=== PATIENT | female | born 1940 | race Caucasian/White ===

== ENCOUNTER → 2016-07-19 | Outpatient (CLI) | payer OTHER, MEDICARE ==
--- NOTE | 2016-07-19 18:04 | DX ---
PA and Lateral Chest History: Cough x1 month in a 76-year-old female; comparison prior study February 01, 2016. Findings: The heart and mediastinum are normal. Pulmonary vascularity is normal. No focal pulmonary c onsolidation is seen. Minimal basilar atelectasis is noted. There is been no significant change from the prior study.. There is no pleural fluid. A pneumothorax is not identified. Impression: Chest negative for acute abnormality.
== END ==
LOC: CIMAGING 14:33
PROVIDERS: ATTEND Nurse Practitioner
DX: R05 Cough (principal)
CPT/HCPCS: 71020-PO; G0463-PO

== ENCOUNTER 2016-07-22 20:20 | Emergency (ER) | payer OTHER, MEDICARE ==
[2016-07-22 20:33] VITALS: BP 176/76; PULSE 94; RESP 18; TEMP 99.5; O2SAT 92
[2016-07-22] MEDS ORDERED: IPRATROPIUM/ALBUTEROL 3 ML DEYVIAL ONE (22:58)
[2016-07-22] MEDS ORDERED: NS 500 ML IV ONE (22:59)
[2016-07-22] MEDS ORDERED: IPRATROPIUM/ALBUTEROL 3 ML DEYVIAL IH ONE (23:12)
--- NOTE | 2016-07-22 23:18 | EDPHY ---
H & P Stated Complaint: cough worsening over 5 days HPI/ROS: CHIEF COMPLAINT: Flu-like symptoms HISTORY OF PRESENT ILLNESS: patient reports cough, congestion, headache, runny nose, body aches, fever and chills. This started on . Mild-to- moderate symptoms that have continued to worsen. No chest pain of any kind during this. She does have occasional shortness of breath with this and worsening of her baseline wheezing. She has no abdominal pain. Some nausea but no vomiting. No urinary complaints. She does have body aches with this. She was seen by primary care physician on Friday with a chest x-ray that was reportedly normal. Discharged home with continuing symptomatic medications. She also has a recent nasal wash out and polypectomy by her ear nose and throat physician several weeks ago. Because of this, her Ear Nose and Throat physician called in a prescription for doxycycline for her to start today. She says that given her medical history, she tends to get viral infections and causing sinusitis thus the doxycycline from her physician. She has no other associated complaints or modifying factors. REVIEW OF SYSTEMS: Ten systems reviewed and are negative unless otherwise noted in the HPI EXAMINATION General Appearance: Alert, no distress Head: normocephalic, atraumatic Eyes: Pupils equal and round, no conjunctival pallor or injection ENT, Mouth: Mucous membranes moist . Uvula midline. No posterior erythema or edema. Neck: Normal inspection, supple, non-tender . Painless range of motion in all planes. no meningismus. Respiratory: Scattered rhonchi, right greater than left. Scattered wheezing , right greater than left. No consolidation or diminishment. No respiratory distress or retractions. Cardiovascular: Regular rate and rhythm . No murmur. Pulses intact distally. Gastrointestinal: Abdomen is soft and nontender The. No flank pain. No suprapubic pain. Neurological: A&O, nonfocal, Strength is symmetric in all limbs. Skin: Warm and dry, no rash Extremities: Nontender, no pedal edema Psychiatric: Mood and affect normal DIFFERENTIAL DIAGNOSES: Including but not limited to Influenza, viral illness, pneumonia, bronchitis, sinusitis MDM: 11:00 p.m. multiple symptoms consistent with the influenza versus viral illness. Vital signs are within normal limits and she does not meet criteria for SIRS. Her auscultation is concerning for possible pneumonia thus I did repeat the chest x- ray she had done on Friday. Laboratory studies are pending at this time including influenza study. She is in no acute distress and comfortable with this plan. 11:20 p.m. chest x-ray as read by me shows right perihilar thickening without any evidence of pneumonia or pneumothorax. 11:45 p.m. patient is positive for influenza B. I re-evaluated the patient. Her lung sounds have improved on the right side after her DuoNeb treatment. Her vital signs are acceptable given her influenza. She is mildly tachycardic at 100 to 105 beats per minute. Her blood pressure is normal. Her oxygenation is 95-100% on room air while wearing a paper mask. She is in no acute distress. The laboratory studies are pending at this time. She does complain of headache and body aches and is requesting pain medication will give her a p.o. dose of Percocet. 12:30 a.m. I have re-evaluated the patient. Her vital signs remained stable. Heart rate is in the 70s. Blood pressure is normotensive. Afebrile and oxygen is 98% on room air. She is feeling better with pain medication. She is comfortable with discharge home and I feel she is stable for doing so. We did start Tamiflu in case it may help her. We discussed the nature of the medication that may not help but will prescribe this for her. She is to contact her Ear Nose and Throat physician and her primary care physician in the morning for follow-up and re-evaluation. She is return to ER for any chest pain, any shortness of breath, any dizziness, or any lightheaded sensation. The patient and the spouse are comfortable this plan and they would like to be discharged home. SUPERVISION:This patient was independently evaluated without the aide of supervising physician. Source: Patient Exam Limitations: No limitations - Personal History Current Tetanus/Diphtheria Vaccine: Yes Current Tetanus Diphtheria and Acellular Pertussis (TDAP): Yes - Medical/Surgical History Hx Asthma: Yes Hx Chronic Respiratory Disease: No Hx Diabetes: No Hx Cardiac Disease: No Hx Renal Disease: No Hx Cirrhosis: No Hx Alcoholism: No Hx HIV/AIDS: No Hx Splenectomy or Spleen Trauma: No Other PMH: sinus surgery. femur fx repair - Social History Smoking Status: Never smoked Constitutional: Initial Vital Signs Temperature (C) 99.5 F 07/22/16 20:28 Heart Rate 94 07/22/16 20:28 Respiratory Rate 18 07/22/16 20:28 Blood Pressure 176/76 H 07/22/16 20:28 O2 Sat (%) 92 07/22/16 20:28 O2 Delivery Mode Room Air Allergies/Adverse Reactions: Penicillins Allergy (Verified 12/31/11 15:22) Home Medications: Medication Instructions Recorded Fluticasone/Salmeterol [Advair 1 each IH BID 12/31/11 250-50 Diskus] Montelukast Sodium [Singulair] 10 mg PO HS 12/31/11 Omeprazole [Prilosec 20 mg] 20 mg PO DAILY 12/31/11 Sertraline HCl 100 mg PO DAILY 12/31/11 Simvastatin [Zocor 40 mg] 40 mg PO EVERY OTHER DAY 12/31/11 Trazodone HCl 100 mg PO HS 12/31/11 celeCOXIB [Celebrex] 200 mg PO DAILY 12/31/11 Cetirizine [ZyrTEC 10 mg (*)] 10 mg PO DAILY 02/01/16 Furosemide [Lasix 20 MG (*)] 20 mg PO DAILY 02/01/16 Simvastatin [Zocor] 20 mg PO EVERY OTHER DAY 02/01/16 Acetaminophen [Tylenol 325mg (*)] 650 mg PO Q4 PRN #0 tab 02/04/16 Enoxaparin [Lovenox 40 MG (*)] 40 mg SC DAILY #0 syr 02/04/16 Magnesium Hydroxide [Milk of 30 ml PO DAILY PRN #0 udcup 02/04/16 Magnesia (*)] Sennosides/Docusate Sodium 1 - 2 tab PO BID #0 tab 02/04/16 [Senokot-S] oxyCODONE IR [Oxycodone Ir (*)] 5 - 10 mg PO Q3 PRN #0 tab 02/04/16 GABAPENTIN 07/22/16 Oseltamivir Phosphate [Tamiflu 75 75 mg PO BID #10 cap 07/23/16 mg (*)] oxyCODONE HCL/ACETAMINOPHEN 1 each PO Q4-6PRN PRN #20 tablet 07/23/16 [Percocet 5-325 mg Tablet] Medical Decision Making - Data Points Laboratory Results: Laboratory Results 07/22/16 23:20 07/22/16 23:20 07/22/16 07/22/16 23:20 22:55 WBC 5.89 10^3/uL (3.80-9.50) RBC 4.57 10^6/uL (4.18-5.33) Hgb 14.2 g/dL (12.6-16.3) Hct 40.0 % (38.0-47.0) MCV 87.5 fL (81.5-99.8) MCH 31.1 pg (27.9-34.1) MCHC 35.5 g/dL (32.4-36.7) RDW 14.5 % (11.5-15.2) Plt Count 255 10^3/uL (150-400) MPV 9.7 fL (8.7-11.7) Neut % (Auto) 64.6 % (39.3-74.2) Lymph % (Auto) 20.5 % (15.0-45.0) [place] % (Auto) 13.2 H % (4.5-13.0) Eos % (Auto) 0.7 % (0.6-7.6) Baso % (Auto) 0.7 % (0.3-1.7) Nucleat RBC Rel Count 0.0 % (0.0-0.2) Absolute Neuts (auto) 3.80 10^3/uL (1.70-6.50) Absolute Lymphs (auto) 1.21 10^3/uL (1.00-3.00) Absolute Monos (auto) 0.78 10^3/uL (0.30-0.80) Absolute Eos (auto) 0.04 10^3/uL (0.03-0.40) Absolute Basos (auto) 0.04 10^3/uL (0.02-0.10) Absolute Nucleated RBC 0.00 10^3/uL (0-0.01) Immature Gran % 0.3 % (0.0-1.1) Immature Gran # 0.02 10^3/uL (0.00-0.10) PT 13.1 SEC (12.0-15.0) INR 1.00 (0.83-1.16) APTT 28.8 SEC (23.0-38.0) Sodium 138 mEq/L (134-144) Potassium 3.7 mEq/L (3.5-5.2) Chloride 102 mEq/L (97-110) Carbon Dioxide 21 L mEq/l (22-31) Anion Gap 15 mEq/L (8-16) BUN 7 mg/dL (7-23) Creatinine 0.5 L mg/dL (0.6-1.0) Estimated GFR > 60 Glucose 103 H mg/dL (70-100) Calcium 9.7 mg/dL (8.5-10.4) Total Bilirubin 0.5 mg/dL (0.1-1.4) Conjugated Bilirubin 0.5 mg/dL (0.0-0.5) Unconjugated Bilirubin 0.0 mg/dL (0.0-1.1) AST 33 IU/L (14-46) ALT 44 IU/L (9-52) Alkaline Phosphatase 82 IU/L (38-126) Total Protein 6.9 g/dL (6.3-8.2) Albumin 4.6 g/dL (3.5-5.0) Lipase 84.0 IU/L (23-300) Influenza Typ A,B (DFA) POSITIVE FOR FLU B H (NEGATIVE) Medications Given: Discontinued Medications Albuterol/Ipratropium (Duoneb) 3 ml IH EDNOW ONE Stop: 07/22/16 23:13 Last Admin: 07/22/16 23:15 Dose: 3 ml Sodium Chloride (Ns) 500 mls @ 0 mls/hr IV ONCE ONE PRN Reason: As Directed Stop: 07/22/16 23:00 Last Admin: 07/22/16 23:31 Dose: 500 mls Oseltamivir Phosphate (Tamiflu) 75 mg PO EDNOW ONE Stop: 07/22/16 23:46 Last Admin: 07/22/16 23:50 Dose: 75 mg Oxycodone/Acetaminophen (Percocet 5/325) 1 tab PO EDNOW ONE Stop: 07/22/16 23:44 Last Admin: 07/22/16 23:45 Dose: 1 tab Departure - Departure Disposition: Home, Routine, Self-Care Clinical Impression: Influenza B Cephalgia Qualifiers: Headache type: unspecified Headache chronicity pattern: acute headache Intractability: not intractable Qualifier Code: (R51) Headache Condition: Good Instructions: Oxycodone/Acetaminophen (By mouth), Influenza (ED) Additional Instructions: Contact primary care physician in the morning for follow-up in the next 1-2 days. Return to the ER for any chest pain, shortness of breath, Dizziness, fever or worsening symptoms. Referrals: Michelle Taveras MD [Primary Care Provider] - As per Instructions Prescriptions: oxyCODONE HCL/ACETAMINOPHEN [Percocet 5-325 mg Tablet] 1 each PO Q4-6PRN PRN # 20 tablet PRN Reason: Pain, Moderate Oseltamivir Phosphate [Tamiflu 75 mg (*)] 75 mg PO BID #10 cap
[2016-07-22 23:40] LABS: % IMMATURE GRANULYOCYTES 0.3 % (0.0-1.1); ABSOLUTE IMMATURE GRANULOCYTES 0.02 10^3/uL (0.00-0.10); ADD DIFF? NO; ADD MORPH? NO; ADD SCAN? NO; ATYPICAL LYMPHOCYTE FLAG 30 (0-99); FRAGMENT RBC FLAG 0 (0-99); HEMOGLOBIN 14.2 g/dL (12.6-16.3); LEFT SHIFT FLG 0 (0-99); LIPEMIA HEMOLYSIS FLAG 90 (0-99); MEAN CELL HEMOGLOBIN 31.1 pg (27.9-34.1); MEAN CELL HEMOGLOBIN CONCENTR. 35.5 g/dL (32.4-36.7); MEAN CELL VOLUME 87.5 fL (81.5-99.8); MEAN PLATELET VOLUME 9.7 fL (8.7-11.7); PLATELET CLUMPS FLAG 0 (0-99); PLATELET COUNT 255 10^3/uL (150-400); RED BLOOD CELL COUNT 4.57 10^6/uL (4.18-5.33); RED CELL DISTRIBUTION WIDTH 14.5 % (11.5-15.2)
[2016-07-22] MEDS ORDERED: OXYCODONE/APAP 5/325 TAB PO ONE (23:43)
[2016-07-22] MEDS ORDERED: OXYCODONE/APAP 5/325 TAB ONE (23:43)
[2016-07-22] MEDS ORDERED: OSELTAMIVIR PHOSPHATE 75 MG CAP PO ONE (23:45)
[2016-07-22 23:49] LABS: PROTIME(PATIENT) 13.1 SEC (12.0-15.0)
[2016-07-22 23:50] LABS: APTT 28.8 SEC (23.0-38.0)
[2016-07-22 23:59] LABS: ALANINE AMINOTRANSFERASE 44 IU/L (9-52); ALBUMIN 4.6 g/dL (3.5-5.0); ALKALINE PHOSPHATASE 82 IU/L (38-126); ANION GAP 15 mEq/L (8-16); ASPARTATE AMINOTRANSFERASE 33 IU/L (14-46); BILIRUBIN,TOTAL 0.5 mg/dL (0.1-1.4); BILIRUBIN-CONJUGATED 0.5 mg/dL (0.0-0.5); CALCIUM 9.7 mg/dL (8.5-10.4); CARBON DIOXIDE 21 mEq/l (22-31); CHLORIDE 102 mEq/L (97-110); CREATININE 0.5 mg/dL (0.6-1.0); GLOMERULAR FILTRATION RATE > 60; GLUCOSE 103 mg/dL (70-100); POTASSIUM 3.7 mEq/L (3.5-5.2); SODIUM 138 mEq/L (134-144); TOTAL PROTEIN 6.9 g/dL (6.3-8.2)
[2016-07-23] MEDS ORDERED: OXYCODONE/APAP 5/325MG PREPACK#4 BTL TAKEHOME ONE (00:37)
== END 2016-07-23 00:52 | disposition home or self-care (01) ==
DX: J10.1 Influenza due to other identified influenza virus with other respiratory manifestations (principal); J45.909 Unspecified asthma, uncomplicated

== ENCOUNTER → 2016-10-08 | Outpatient (CLI) | payer OTHER, MEDICARE | LOC: BHCLAF 14:00 | PROVIDERS: ATTEND Internal Medicine Cardiovascular Disease | DX: I34.0 Nonrheumatic mitral (valve) insufficiency (principal); I27.2 Other secondary pulmonary hypertension | CPT/HCPCS: 93005-PO ==

== ENCOUNTER → 2016-11-01 | Outpatient (CLI) | payer OTHER, MEDICARE | LOC: BHCLAF 09:15 | PROVIDERS: ATTEND Internal Medicine | DX: R06.00 Dyspnea, unspecified (principal) | CPT/HCPCS: 93306-PO ==

== ENCOUNTER → 2017-01-07 | Outpatient (CLI) | payer OTHER, MEDICARE | LOC: CIMAGING 10:07 | PROVIDERS: ATTEND Internal Medicine | DX: Z12.31 Encounter for screening mammogram for malignant neoplasm of breast (principal) | CPT/HCPCS: G0202 ==

== ENCOUNTER 2017-01-23 20:17 | Inpatient (IN) | payer OTHER, MEDICARE ==
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
[2017-01-23] MEDS ORDERED: HYDROCODONE/APAP 5/325 TAB PO ONE (20:34)
[2017-01-23 22:03] LABS: % IMMATURE GRANULYOCYTES 1.1 % (0.0-1.1); ABSOLUTE IMMATURE GRANULOCYTES 0.14 10^3/uL (0.00-0.10); ADD DIFF? NO; ADD MORPH? NO; ADD SCAN? NO; ATYPICAL LYMPHOCYTE FLAG 10 (0-99); FRAGMENT RBC FLAG 0 (0-99); HEMATOCRIT 39.9 % (38.0-47.0); HEMOGLOBIN 13.3 g/dL (12.6-16.3); LEFT SHIFT FLG 10 (0-99); LIPEMIA HEMOLYSIS FLAG 80 (0-99); MEAN CELL HEMOGLOBIN 29.2 pg (27.9-34.1); MEAN CELL HEMOGLOBIN CONCENTR. 33.3 g/dL (32.4-36.7); MEAN CELL VOLUME 87.7 fL (81.5-99.8); MEAN PLATELET VOLUME 9.8 fL (8.7-11.7); PLATELET CLUMPS FLAG 10 (0-99); PLATELET COUNT 270 10^3/uL (150-400); RED BLOOD CELL COUNT 4.55 10^6/uL (4.18-5.33); RED CELL DISTRIBUTION WIDTH 13.1 % (11.5-15.2)
[2017-01-23 22:12] LABS: ANION GAP 13 mEq/L (8-16); CALCIUM 9.3 mg/dL (8.5-10.4); CARBON DIOXIDE 20 mEq/l (22-31); CHLORIDE 107 mEq/L (97-110); CREATININE 0.6 mg/dL (0.6-1.0); GLOMERULAR FILTRATION RATE > 60; GLUCOSE 102 mg/dL (70-100); POTASSIUM 3.9 mEq/L (3.5-5.2); SODIUM 140 mEq/L (134-144)
[2017-01-23] MEDS ORDERED: ONDANSETRON 4 MG/2 ML VIAL IVP PRN (23:35)
[2017-01-23] MEDS ORDERED: LR 1,000 ML IV SCH (23:45)
[2017-01-24] MEDS: oxyCODONE IR 5 MG TAB PO PRN ×3 (00:27→20:05)
[2017-01-24] MEDS ORDERED: traZODone 50 MG TAB PO SCH ×2 (00:30→21:00)
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
[2017-01-24] MEDS: ATORVASTATIN CALCIUM 20 MG TAB PO SCH (08:36)
[2017-01-24] MEDS: SENNOSIDES/DOCUSATE SODIUM TAB PO SCH ×2 (08:36→21:16)
[2017-01-24] MEDS: PANTOPRAZOLE SODIUM 40 MG TAB PO SCH (08:36)
[2017-01-24] MEDS: FUROSEMIDE 20 MG TAB PO SCH (08:37)
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
[2017-01-24] MEDS ORDERED: SERTRALINE HCL 100 MG TAB PO SCH (09:00)
[2017-01-24] MEDS ORDERED: NON-FORMULARY NEW DRUG (Omeprazole [Prilosec 20 Mg] 20 MG) PO SCH (09:00)
[2017-01-24] MEDS: FLUTICASONE/SALMETER 250/50MCG DISKUS IH SCH ×2 (09:36→20:08)
--- NOTE | 2017-01-24 14:03 | SOAPPROG ---
SOAP Progress Note Assessment/Plan: Assessment: Plan: Subjective: pain is worst in her pelvis tender at l clavicel and l pelvis wbat on BLE platform added to walker for RUE FU in office for all injuries with cast on R hand Objective: Vital Signs Temp Pulse Resp BP Pulse Ox 36.9 C 86 16 125/66 H 92 01/24/17 11:16 01/24/17 11:16 01/24/17 11:16 01/24/17 11:16 01/24/17 11:16 01/23/17 01/24/17 01/25/17 05:59 05:59 05:59 Intake Total 300 Output Total 1 Balance 300 -1 ICD10 Worksheet Patient Problems: Problems Problem Status Onset Clavicle fracture Acute Thumb fracture Acute Cephalgia Acute Femur fracture, right Acute Influenza B Acute
[2017-01-24] MEDS ORDERED: ACETAMINOPHEN 325 MG TAB PO PRN (14:50)
[2017-01-24] MEDS ORDERED: FLUTICASONE NASAL 120 SPRAYS/16 GM MDI EACHNARE PRN (15:36)
[2017-01-24] MEDS ORDERED: ALBUTEROL 200 PUFFS/18 GM MDI IH PRN (15:36)
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
[2017-01-24] MEDS: GABAPENTIN 100 MG CAP PO PRN (20:05)
[2017-01-24] MEDS: MONTELUKAST SODIUM 10 MG TAB PO SCH (20:07)
[2017-01-24] MEDS ORDERED: LEVALBUTEROL INHALER 200 PUFFS/15 GM MDI IH PRN (20:56)
[2017-01-24] MEDS ORDERED: MONTELUKAST SODIUM 10 MG TAB PO SCH (21:00)
[2017-01-24] MEDS: traZODone 50 MG TAB PO SCH (21:14)
[2017-01-25] MEDS: FLUTICASONE/SALMETER 250/50MCG DISKUS IH SCH ×2 (08:27→20:57)
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
[2017-01-25] MEDS ORDERED: NON-FORMULARY NEW DRUG (Simvastatin [Zocor] 20 MG) PO SCH (09:00)
[2017-01-25] MEDS ORDERED: NON-FORMULARY NEW DRUG (Simvastatin [Zocor 40 Mg] 40 MG) PO SCH (09:00)
[2017-01-25] MEDS: ATORVASTATIN CALCIUM 20 MG TAB PO SCH (09:36)
[2017-01-25] MEDS: FUROSEMIDE 20 MG TAB PO SCH (09:37)
[2017-01-25] MEDS: SERTRALINE HCL 50 MG TAB PO SCH (09:37)
[2017-01-25] MEDS: oxyCODONE IR 5 MG TAB PO PRN ×2 (09:37→20:57)
[2017-01-25] MEDS: PANTOPRAZOLE SODIUM 40 MG TAB PO SCH (09:39)
[2017-01-25] MEDS: ATORVASTATIN CALCIUM 10 MG TAB PO SCH (10:12)
[2017-01-25] MEDS: SENNOSIDES/DOCUSATE SODIUM TAB PO SCH ×2 (10:44→19:57)
--- NOTE | 2017-01-25 13:52 | SOAPPROG ---
SOAP Progress Note Assessment/Plan: Assessment: Plan: Subjective: OOB to chair states she can't walk well platform helps tender at clavicle/pelvis and thumb await PT clearance Objective: Vital Signs Temp Pulse Resp BP Pulse Ox 36.5 C 91 16 156/71 H 91 L 01/25/17 08:40 01/25/17 08:40 01/25/17 08:40 01/25/17 08:40 01/25/17 08:40 01/24/17 01/25/17 01/26/17 05:59 05:59 05:59 Intake Total 500 Output Total 700 400 Balance -200 -400 ICD10 Worksheet Patient Problems: Problems Problem Status Onset Clavicle fracture Acute Thumb fracture Acute Cephalgia Acute Femur fracture, right Acute Influenza B Acute
[2017-01-25] MEDS: MONTELUKAST SODIUM 10 MG TAB PO SCH (20:56)
[2017-01-25] MEDS: traZODone 50 MG TAB PO SCH (20:56)
[2017-01-26] MEDS ORDERED: CYCLOBENZAPRINE 10 MG TAB PO PRN (07:19)
[2017-01-26] MEDS: oxyCODONE IR 5 MG TAB PO PRN ×2 (07:35→20:40)
[2017-01-26] MEDS: SERTRALINE HCL 50 MG TAB PO SCH (07:36)
[2017-01-26] MEDS: PANTOPRAZOLE SODIUM 40 MG TAB PO SCH (07:36)
[2017-01-26] MEDS: FUROSEMIDE 20 MG TAB PO SCH (07:36)
[2017-01-26] MEDS: ATORVASTATIN CALCIUM 20 MG TAB PO SCH (07:36)
[2017-01-26] MEDS: SENNOSIDES/DOCUSATE SODIUM TAB PO SCH ×2 (07:38→21:17)
[2017-01-26] MEDS: FLUTICASONE/SALMETER 250/50MCG DISKUS IH SCH ×2 (07:50→20:40)
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
[2017-01-26] MEDS: traZODone 50 MG TAB PO SCH (20:41)
[2017-01-26] MEDS: MONTELUKAST SODIUM 10 MG TAB PO SCH (20:43)
[2017-01-26] MEDS: GABAPENTIN 100 MG CAP PO PRN (20:43)
[2017-01-27 07:19] VITALS: BP 110/58; TEMP 98.2
[2017-01-27] MEDS: FLUTICASONE/SALMETER 250/50MCG DISKUS IH SCH (08:04)
[2017-01-27 08:19] VITALS: PULSE 104; RESP 18; O2SAT 94
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
[2017-01-27] MEDS: oxyCODONE IR 5 MG TAB PO PRN (08:40)
[2017-01-27] MEDS: ATORVASTATIN CALCIUM 10 MG TAB PO SCH (08:40)
[2017-01-27] MEDS: FUROSEMIDE 20 MG TAB PO SCH (08:42)
[2017-01-27] MEDS: PANTOPRAZOLE SODIUM 40 MG TAB PO SCH (08:42)
[2017-01-27] MEDS: SERTRALINE HCL 50 MG TAB PO SCH (08:49)
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
[2017-01-27] MEDS: SENNOSIDES/DOCUSATE SODIUM TAB PO SCH (09:56)
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
== END 2017-01-27 14:26 | DRG 536 ==
LOC: INTOOBSV 22:08 → F3N 23:31 → OBSVTOIN 01-24 14:40
PROVIDERS: ADMIT Surgery; ATTEND Surgery
DX: S32.592A Other specified fracture of left pubis, initial encounter for closed fracture (principal); S42.002A Fracture of unspecified part of left clavicle, initial encounter for closed fracture; S62.201A Unspecified fracture of first metacarpal bone, right hand, initial encounter for closed fracture; V17.0XXA Pedal cycle driver injured in collision with fixed or stationary object in nontraffic accident, initial encounter; Y93.55 Activity, bike riding; I10 Essential (primary) hypertension
CPT/HCPCS: 92523-GN; 97116-GP; 97161-GP; 97167-GO; 97530-GO; 97530-GP; 97535-GO; G0378; G8978-GP-CK; G8979-GP-CI; G8980-GP-CI; G8987-GO-CL; G8988-GO-CJ; G9165-GN-CH; G9166-GN-CH; G9167-GN-CH

== ENCOUNTER → 2018-01-20 | Outpatient (CLI) | payer OTHER, MEDICARE | DX: Z12.31 Encounter for screening mammogram for malignant neoplasm of breast (principal) ==

== ENCOUNTER → 2018-01-29 | Outpatient (CLI) | payer OTHER, MEDICARE | LOC: CIMAGING 12:34 | PROVIDERS: ATTEND Nurse Practitioner | DX: D24.2 Benign neoplasm of left breast (principal) ==

== ENCOUNTER → 2018-02-04 | Outpatient (CLI) | payer OTHER, MEDICARE | LOC: BMCIMAGING 08:14 | PROVIDERS: ATTEND Orthopaedic Surgery | DX: M79.651 Pain in right thigh (principal); I70.0 Atherosclerosis of aorta; Z87.81 Personal history of (healed) traumatic fracture ==

== ENCOUNTER 2018-06-01 08:39 | Emergency (ER) | payer OTHER, MEDICARE ==
--- NOTE | 2018-06-01 09:19 | EDPHY ---
H & P Time Seen by Provider: 06/01/18 09:04 HPI/ROS: This patient presents with sinus pressure this been increasing over the past few weeks particular over the past couple days. She describes 3 and half weeks of symptoms with dark edwards in green appearing discharge from her nose over the past few days. She also describes pressure mostly in the maxillary sinus on the right side similar to prior episodes of sinusitis. She describes moderate pain that is worse when she bends over. She has tried Tylenol with minimal relief and notes no other exacerbating factors. She had difficulty sleeping due to the pain last night. She arrives by private vehicle. ROS constitutional: No fevers or chills. HEENT: No sore throat. No ear pain Neuro: No generalized headache. No confusion. No neck stiffness. Pulmonary: Occasional cough that she attributes to postnasal drip. No shortness of breath or pleuritic pain. No dyspnea. Cardiovascular: No complaints GI: No complaints 7 point review of symptoms is performed and otherwise negative with exception of pertinent positives and negatives listed in HPI and ROS Past Medical/Surgical History: Sinusitis with sinus surgery Smoking Status: Never smoked Physical Exam: Physical Exam Vital signs are normal. General: No acute distress HEENT: Nose: Swollen nasal mucosa with yellow discharge. She has sinus tenderness to percussion of the right maxillary sinus. Ears: External canals and tympanic membranes are clear with no erythema or abnormal findings bilaterally. Oropharynx: No erythema or exudates. No dysphonia. No drooling or stridor. Eyes: Pupils equal and react to light. Extraocular motions are intact. Neck: Supple with no meningismus. No lymphadenopathy Lungs: Clear to auscultation bilaterally with no rales, rhonchi or wheeze. No respiratory distress. Cardiac: Regular rate and rhythm with no murmur gallop or rub Skin: No rash or pallor. Neuro: Alert with no focal deficits noted. Initial differential diagnosis: Bacterial sinusitis, viral rhinosinusitis, tension headache, URI Constitutional: Initial Vital Signs Temperature (C) 36.8 C 06/01/18 08:53 Heart Rate 72 06/01/18 08:53 Respiratory Rate 18 06/01/18 08:53 Blood Pressure 184/67 H 06/01/18 08:53 O2 Sat (%) 95 06/01/18 08:53 O2 Delivery Mode Room Air Allergies/Adverse Reactions: Penicillins Allergy (Verified 06/01/18 08:53) Home Medications: Medication Instructions Recorded Fluticasone/Salmeterol [Advair 1 each IH BID 12/31/11 250-50 Diskus] Omeprazole [Prilosec 20 mg] 20 mg PO DAILY 12/31/11 Simvastatin [Zocor 40 mg] 40 mg PO EVERY OTHER DAY 12/31/11 Cetirizine [ZyrTEC 10 mg (*)] 10 mg PO DAILY 02/01/16 Furosemide [Lasix 20 MG (*)] 20 mg PO DAILY 02/01/16 Simvastatin [Zocor] 20 mg PO EVERY OTHER DAY 02/01/16 Fluticasone Nasal [Flonase Nasal 1 sprays NASAL DAILY PRN 01/24/17 [place]] Gabapentin [Neurontin 100 MG (*)] 200 mg PO HS PRN 01/24/17 Levalbuterol Inhaler [Xopenex Hfa 1 puffs IH DAILY PRN 01/24/17 Inhaler (*)] Montelukast Sodium [Singulair 10 10 mg PO HS 01/24/17 mg (*)] Multivitamins [Multivitamin (*)] 1 each PO DAILY 01/24/17 Sertraline HCl [Zoloft 50mg (*)] 50 mg PO DAILY 01/24/17 celeCOXIB [Celebrex (*)] 200 mg PO DAILY 01/24/17 traZODone [traZODONE 50MG (*)] 50 - 100 mg PO HS 01/24/17 Acetaminophen [Tylenol 325mg (*)] 650 mg PO Q6HRS PRN #0 tab 01/27/17 Calcium Carbonate/Vitamin D3 3 each PO DAILY #0 tablet 01/27/17 [Calcium 500-Vit D3 200 Tablet] Cyclobenzaprine [Flexeril 10 MG 10 mg PO TID PRN #20 tab 01/27/17 (*)] oxyCODONE IR [Oxycodone Ir (*)] 5 - 10 mg PO Q4H PRN #30 tab 01/27/17 Azithromycin [Zithromax] 250 mg PO DAILY #6 tab 06/01/18 traMADol [Ultram 50 mg (*)] 50 - 100 mg PO Q4 PRN #12 tab 06/01/18 MDM/Departure - MDM ED Course/Re-evaluation: Discussion: Findings are consistent with acute sinusitis without evidence of ENGRAVER BLOCK infection or other complicating factors. I counseled regarding this. Will treat her with Zithromax Flonase. Cover her with tramadol for pain that prevents sleep. She will follow up with ENT doctor for any ongoing symptoms. - Depart Disposition: Home, Routine, Self-Care Clinical Impression: Acute sinusitis Qualifiers: Sinusitis location: maxillary Recurrence: not specified as recurrent Qualified Code(s): J01.00 - Acute maxillary sinusitis, unspecified Condition: Good Instructions: Sinusitis (ED) Additional Instructions: Diagnosis: Acute sinusitis Plan: Humidifier Flonase steroid nasal spray Zithromax antibiotic Tylenol for pain. Continue her Celebrex Tramadol in addition if needed for pain that prevents sleep. No driving, alcohol or work on tramadol Return for any significant worsening despite treatment Prescriptions: Azithromycin [Zithromax] 250 mg PO DAILY #6 tab traMADol [Ultram 50 mg (*)] 50 - 100 mg PO Q4 PRN #12 tab PRN Reason: breakthrough pain Referrals: Mylene Lara, [facility] [Primary Care Provider] - As per Instructions
[2018-06-01 09:37] VITALS: BP 156/70
== END 2018-06-01 09:30 | disposition home or self-care (01) ==
LOC: CED 08:39
DX: J01.00 Acute maxillary sinusitis, unspecified (principal)

== ENCOUNTER → 2018-08-27 | Outpatient (CLI) | payer OTHER, MEDICARE | LOC: BHFA 09:30 | PROVIDERS: ATTEND Internal Medicine Cardiovascular Disease | DX: I34.0 Nonrheumatic mitral (valve) insufficiency (principal); I27.20 Pulmonary hypertension, unspecified | CPT/HCPCS: 78452; 93017; A9500 ==

== ENCOUNTER → 2018-09-08 | Outpatient (CLI) | payer OTHER, MEDICARE | LOC: BHCLAF 10:00 | PROVIDERS: ATTEND Internal Medicine Cardiovascular Disease | DX: I34.0 Nonrheumatic mitral (valve) insufficiency (principal) | CPT/HCPCS: 93306-PO ==